=== PATIENT | male | born 1940 | race Caucasian/White ===

== ENCOUNTER → 2018-05-21 19:27 | Outpatient (REF) | payer MEDICARE, OTHER, SELFPAY | LOC: LAB 19:27 | PROVIDERS: Visit Provider Family Medicine Geriatric Medicine | DX: R97.20 Elevated prostate specific antigen [PSA] (principal) | CPT/HCPCS: 36415; 84153 ==

== ENCOUNTER 2020-01-20 08:30 | Outpatient (RCR) | payer MEDICARE, OTHER, SELFPAY | END 2020-01-20 10:30 | LOC: CAR 08:30 | PROVIDERS: PCP Family Medicine Geriatric Medicine; Referring Provider Internal Medicine Interventional Cardiology; Visit Provider Internal Medicine Interventional Cardiology | DX: Z95.5 Presence of coronary angioplasty implant and graft (principal) | CPT/HCPCS: 93798 ==

== ENCOUNTER 2024-07-22 08:30 | Outpatient (RCR) | payer MEDICARE, OTHER, SELFPAY | END 2024-07-22 10:30 | LOC: CAR 08:30 | PROVIDERS: PCP Family Medicine Geriatric Medicine; Referring Provider Internal Medicine Interventional Cardiology; Visit Provider Internal Medicine Interventional Cardiology | DX: Z95.5 Presence of coronary angioplasty implant and graft (principal); R06.09 Other forms of dyspnea | CPT/HCPCS: 93798 ==